=== PATIENT | female | born 1995 | race African-American/Black ===

== ENCOUNTER 2019-04-16 14:38 | Emergency (ER) | payer MEDICAID ==
[~2019-04-16] VITALS: Ht 157.5 cm; Wt 81.6 kg
[2019-04-16 14:49] VITALS: BP 121/75
[2019-04-16 15:25] LABS: APPEARANCE,URINE Cloudy (CLEAR); BILIRUBIN,URINE SMALL (NEGATIVE); BLOOD, URINE Large Ery/uL (NEGATIVE); COLOR,URINE Dark (YELLOW); KETONES,URINE Trace (NEGATIVE); LEUKOCYTE ESTERASE ,URINE Small (NEGATIVE); NITRITE, URINE Negative (NEGATIVE); PH,URINE 6.5 (5.0-8.0); PROTEIN,URINE 100 mg/dl (NEGATIVE); UGLUCOSE Negative (NEGATIVE)
[2019-04-16 15:34] LABS: BACTERIA,URINE MOD /HPF (None Seen); RBC,URINE 21-50 /HPF (0-2); SQUAMOUS EPITHELIAL CELL,UR Few /HPF (None Seen)
[2019-04-16 15:35] LABS: MUCUS,URINE Moderate /LPF (None Seen)
--- NOTE | 2019-04-16 16:02 | NUR ---
For discharge [facility] given verbalized understanding Home ambulatory Stable
== END 2019-04-16 16:01 | disposition home or self-care (01) ==
LOC: ER 14:47
DX: N39.0 Urinary tract infection, site not specified (principal)
CPT/HCPCS: 81000-TC; 84703-TC; 87210-TC

== ENCOUNTER 2019-06-10 13:19 | Emergency (ER) | payer MEDICAID ==
[~2019-06-10] VITALS: Ht 157.5 cm; Wt 82.6 kg
[2019-06-10 13:25] VITALS: BP 125/79
[2019-06-10 13:55] LABS: APPEARANCE,URINE Slightly Cloudy (CLEAR); BILIRUBIN,URINE Negative (NEGATIVE); BLOOD, URINE Negative Ery/uL (NEGATIVE); COLOR,URINE Yellow (YELLOW); KETONES,URINE Negative (NEGATIVE); LEUKOCYTE ESTERASE ,URINE Negative (NEGATIVE); NITRITE, URINE Negative (NEGATIVE); PH,URINE 5.5 (5.0-8.0); PROTEIN,URINE Negative (NEGATIVE); UGLUCOSE Negative (NEGATIVE)
[2019-06-10 14:06] LABS: BACTERIA,URINE Rare /HPF (None Seen); RBC,URINE 0-3 /HPF (0-2); SQUAMOUS EPITHELIAL CELL,UR Moderate /HPF (None Seen)
== END 2019-06-10 14:46 | disposition home or self-care (01) ==
LOC: ER 13:23
DX: N89.8 Other specified noninflammatory disorders of vagina (principal); Z20.2 Contact with and (suspected) exposure to infections with a predominantly sexual mode of transmission
CPT/HCPCS: 81000-TC; 84703-TC; 87086-TC; 87210-TC; 87491; 87591

== ENCOUNTER 2019-08-27 15:17 | Emergency (ER) | payer MEDICAID ==
[~2019-08-27] VITALS: Ht 157.5 cm; Wt 79.8 kg
[2019-08-27 15:28] VITALS: BP 107/68
[2019-08-27] MEDS ORDERED: PHENAZOPYRIDINE HCL 200 MG TABLET PO ONE (16:00)
[2019-08-27 16:03] LABS: APPEARANCE,URINE Turbid (CLEAR); BILIRUBIN,URINE Negative (NEGATIVE); BLOOD, URINE Moderate Ery/uL (NEGATIVE); COLOR,URINE Yellow (YELLOW); KETONES,URINE Negative (NEGATIVE); LEUKOCYTE ESTERASE ,URINE Moderate (NEGATIVE); NITRITE, URINE Positive (NEGATIVE); PROTEIN,URINE 30 mg/dl (NEGATIVE); UGLUCOSE Negative (NEGATIVE)
[2019-08-27] MEDS ORDERED: PHENAZOPYRIDINE HCL 200 MG TABLET ONE (16:11)
[2019-08-27 17:01] LABS: BACTERIA,URINE 4+ /HPF (None Seen); SQUAMOUS EPITHELIAL CELL,UR 0-2 /HPF (None Seen); WBC,URINE 21-50 /HPF (0-3)
== END 2019-08-27 16:15 | disposition home or self-care (01) ==
LOC: ER 15:25
DX: N39.0 Urinary tract infection, site not specified (principal)
CPT/HCPCS: 81000-TC; 84703-TC; 87086-TC; 87186-TC

== ENCOUNTER 2019-10-15 00:54 | Emergency (ER) | payer MEDICAID ==
[~2019-10-15] VITALS: Ht 157.5 cm; Wt 79.4 kg
--- NOTE | 2019-10-15 01:10 | NUR ---
[facility] FORM HOME TO ER BED 6. AAOX4. NO RESP DISTRESS NOTED. AMBULATORY. C/O FLULIKE SYMPTOMS. PT REPORT THAT IT STARTED 10/05/19 WHEN SHE GOT BACK FROM HER TRAVEL TO [place]. REPORT COUGH WITH YELLOW SPUTUM, NASAL CONGESTION WELL CHEST CONGESTION AND R SIDED HEADACHE. PT RATE PAIN 8/10. POUNDING SENSATION ON HEADACHE. LUNG SOUNDS ARE PRESENT AND CLEAR UPON AUSCULTATION. NOTED SLIGHT ELEVATION ON TEMP 99.8. AWAITING MD FOR EVAL.
[2019-10-15] MEDS ORDERED: ACETAMINOPHEN 325 MG TABLET ONE (01:54)
[2019-10-15] MEDS ORDERED: ACETAMINOPHEN 325 MG TABLET PO ONE (02:00)
[2019-10-15 03:05] VITALS: BP 109/66
--- NOTE | 2019-10-15 03:05 | NUR ---
Patient discharged to home in stable condition. Written and verbal after care instructions given. Patient verbalizes understanding of instruction. Pt ambulatory with a steady gait
== END 2019-10-15 03:06 | disposition home or self-care (01) ==
LOC: ER 00:54
DX: J01.90 Acute sinusitis, unspecified (principal)
CPT/HCPCS: 71046

== ENCOUNTER 2020-01-25 03:43 | Emergency (ER) | payer MEDICAID ==
[~2020-01-25] VITALS: Ht 157.5 cm; Wt 79.4 kg
[2020-01-25 03:43] VITALS: BP 127/82
[2020-01-25 04:54] LABS: APPEARANCE,URINE Clear (CLEAR); BILIRUBIN,URINE Negative (NEGATIVE); BLOOD, URINE Negative Ery/uL (NEGATIVE); COLOR,URINE Yellow (YELLOW); KETONES,URINE Negative (NEGATIVE); LEUKOCYTE ESTERASE ,URINE Negative (NEGATIVE); NITRITE, URINE Negative (NEGATIVE); PROTEIN,URINE Negative (NEGATIVE); UGLUCOSE Negative (NEGATIVE)
== END 2020-01-25 06:00 | disposition home or self-care (01) ==
LOC: ER 03:43
DX: N76.0 Acute vaginitis (principal)
CPT/HCPCS: 81000-TC; 84703-TC

== ENCOUNTER 2020-04-15 13:02 | Emergency (ER) | payer MEDICAID ==
[~2020-04-15] VITALS: Ht 157.5 cm; Wt 79.4 kg
--- NOTE | 2020-04-15 13:05 | NUR ---
PT BIB SELF C/O DIARRHEA AND ABDOMINAL PAIN FOR 3 DAYS, PT IS AAOX4, NOT IN RESPIRATORY DISTRESS, V/S STABLE, KEPT RESTED AND COMFORTABLE, WILL CONTINUE TO MONITOR.
--- NOTE | 2020-04-15 13:13 | NUR ---
PT URINE SPECIMEN COLLECTED AND SENT TO LAB.
--- NOTE | 2020-04-15 13:15 | NUR ---
AT BEDSIDE FOR EVAL.
--- NOTE | 2020-04-15 13:30 | NUR ---
ER PHLEB AT BEDSIDE FOR BLOOD DRAW.
[2020-04-15 13:47] LABS: BASOPHILS % (AUTO) 0.7 % (0.0-2.0); EOSINOPHILS % (AUTO) 1.5 % (0.0-6.0); HEMATOCRIT 40 % (33-45); HEMOGLOBIN 13.3 g/dL (11.5-14.8); LYMPHOCYTES # (AUTO) 3.1 /CMM (0.8-4.8); LYMPHOCYTES % (AUTO) 62.5 % (20.0-44.0); MEAN CORPUSCULAR HGB CONC 33 g/dl (31.0-36.0); MEAN CORPUSCULAR VOLUME 93 fL (82-100); MONOCYTES # (AUTO) 0.2 /CMM (0.1-1.30); MONOCYTES % (AUTO) 4.5 % (2.0-12.0); NEUTROPHILS # (AUTO) 1.5 /CMM (1.8-8.9); NEUTROPHILS % (AUTO) 30.8 % (43.0-81.0); PLATELET COUNT (AUTO) 346 /CMM (150-450); RED BLOOD CELL COUNT(AUTO) 4.28 MIL/uL (4.0-5.2); WHITE BLOOD COUNT (AUTO) 4.9 K/uL (4.3-11.0)
[2020-04-15 13:49] LABS: BILIRUBIN,URINE Negative (NEGATIVE); BLOOD, URINE Trace-intact Ery/uL (NEGATIVE); COLOR,URINE Yellow (YELLOW); KETONES,URINE Trace (NEGATIVE); LEUKOCYTE ESTERASE ,URINE Trace (NEGATIVE); NITRITE, URINE Negative (NEGATIVE); PH,URINE 8.5 (5.0-8.0); PROTEIN,URINE Negative (NEGATIVE); UGLUCOSE Negative (NEGATIVE)
[2020-04-15 13:53] LABS: APPEARANCE,URINE HAZY (CLEAR)
[2020-04-15 13:56] LABS: BACTERIA,URINE Few /HPF (None Seen); MUCUS,URINE Moderate /LPF (None Seen); SQUAMOUS EPITHELIAL CELL,UR Few /HPF (None Seen)
[2020-04-15 13:58] LABS: CALCIUM, SERUM 9.2 mg/dL (8.5-10.1); CREATININE 0.8 mg/dL (0.6-1.3); POTASSIUM 3.6 mmol/L (3.5-5.1)
[2020-04-15 14:03] LABS: BILIRUBIN,DIRECT 0.1 mg/dL (0.0-0.2); BILIRUBIN,TOTAL 0.4 mg/dL (0.2-1.0)
--- NOTE | 2020-04-15 14:17 | NUR ---
Patient discharged to home in stable condition. Written and verbal after care instructions given. Patient verbalizes understanding of instruction.
[2020-04-15 14:18] VITALS: BP 121/77
== END 2020-04-15 14:18 | disposition home or self-care (01) ==
LOC: ER 13:05
DX: K52.9 Noninfective gastroenteritis and colitis, unspecified (principal)
CPT/HCPCS: 36415; 80048-TC; 80076-TC; 81000-TC; 83690-TC; 84703-TC; 85025-TC